=== PATIENT | male | born 1955 | race Caucasian/White ===

== ENCOUNTER 2016-10-06 10:14 | Emergency (ER) | payer BC ==
[2016-10-06 10:26] VITALS: BP 149/90
--- NOTE | 2016-10-06 11:28 | UC ---
Neck Pain HPI - HPI Summary HPI Summary: This is a 61 yo gentleman with HTN, DM and HLD who presents with c/o neck and shoulder pain for ~5d. He denies trauma. He was working in his garden the day prior to symptoms starting. He awoke with symptoms that have become progressively worse. He went on a car trip the day symptoms started. He denies associated weakness, numbness. Pain radiates across his upper back/ shoulders. He used one dose of ibuprofen and regular hot/cold packs. No assoc MITCHELL or vision changes. - History of Current Complaint Chief Complaint: UCBackPain Stated Complaint: NECK/BILATERAL SHOULDER PAIN - Allergies/Home Medications Allergies/Adverse Reactions: Allergies Allergy/AdvReac Type Severity Reaction Status Date / Time Lisinopril Allergy See Comment Verified 10/06/16 10:26 Home Medications: Home Medications Cholecalciferol TAB* [Vitamin D TAB*] 1,000 unit PO DAILY 10/06/16 [History Confirmed 10/06/16] Cyanocobalamin TAB* [Vitamin B12 TAB*] 1,000 mcg PO DAILY 10/06/16 [History Confirmed 10/06/16] Glimepiride [Amaryl] 4 mg PO DAILY 10/06/16 [History Confirmed 10/06/16] PMH/Surg Hx/FS Hx/Imm Hx Endocrine History: Diabetes, Dyslipidemia Cardiovascular History: Hypertension - Surgical History Surgical History: Yes Surgery Procedure, Year, and Place: hyernia repair - Family History Known Family History: Positive: Diabetes - Social History Alcohol Use: Weekly Substance Use Type: Marijuana Smoking Status (MU): Former Smoker Review Of Systems Constitutional: Positive: Negative Skin: Positive: Negative Eyes: Positive: Negative ENT: Positive: Negative Respiratory: Positive: Negative Cardiovascular: Positive: Negative Gastrointestinal: Positive: Negative Genitourinary: Positive: Negative Musculoskeletal: Positive: Arthralgia Neurological: Positive: Negative Psychological: Positive: Negative All Other Systems Reviewed And Are Negative: Yes Physical Exam Triage Information Reviewed: Yes Appearance: Pain Distress Vital Signs: Initial Vital Signs Temp 98.2 F 10/06/16 10:22 Pulse 63 10/06/16 10:22 Resp 16 10/06/16 10:22 BP 149/90 10/06/16 10:22 Pulse Ox 99 10/06/16 10:22 Vital Signs Reviewed: Yes Neck: Positive: Supple, Other: - TTP over R lateral cervical paraspinal muscles/ trapezium Respiratory: Positive: Lungs clear, Normal breath sounds Cardiovascular: Positive: RRR, No Murmur Musculoskeletal: Positive: ROM Limited @ - cervical spine, Other: - full ROM at the shoulders and full strength Neck Pain Course/Dx - Course Course Of Treatment: This is a 61 yo gentleman with DM, HTN and HLD who presented with c/o neck pain/stiffness without associated trauma. Exam appears to be c/w cervical strain/spasm - Differential Dx/Diagnosis Differential Dx/HQI/PQRI: Cervical Fracture, Sprain, Strain Provider Diagnoses: 1. Cervical strain Discharge - Discharge Plan Condition: Stable Disposition: HOME Prescriptions: Cyclobenzaprine TAB* [Flexeril 10 MG TAB*] 10 mg PO TID PRN #30 tab PRN Reason: pain/spasm Hydrocodone-Acetaminophen [Hydrocodone/Acetaminophen 5-325 mg] 1 tab PO Q6H PRN #20 tab MDD 4 tabs PRN Reason: Pain Patient Education Materials: Cervical Strain (ED) Referrals: Rod Zaldivar MD [Primary Care Provider] - If Needed Additional Instructions: Activity: As tolerated, no drive when taking pain medication Instructions: 1. Take medications as directed 2. Cont using warm packs, try to start gentle stretching 3. Consider massage or career resource technician
== END 2016-10-06 11:28 | disposition home or self-care (01) ==
LOC: UCCORT 10:14
DX: S13.9XXA Sprain of joints and ligaments of unspecified parts of neck, initial encounter (principal); I10 Essential (primary) hypertension; E11.9 Type 2 diabetes mellitus without complications; E78.5 Hyperlipidemia, unspecified; X58.XXXA Exposure to other specified factors, initial encounter; Z87.891 Personal history of nicotine dependence; Y92.9 Unspecified place or not applicable
CPT/HCPCS: 99212; G0463

== ENCOUNTER 2016-10-21 13:05 | Emergency (ER) | payer BC ==
[2016-10-21] MEDS ORDERED: Heparin VIAL(*) 5000 UNITS/ML VIAL (FIVE THOUSAND) ONE (13:15)
[2016-10-21] MEDS ORDERED: Ticagrelor* 90 MG TAB PO ONE (13:15)
[2016-10-21 13:16] VITALS: BP 183/104
[2016-10-21 13:25] LABS: Hematocrit 42 % (42-52); Hemoglobin 14.5 g/dl (14.0-18.0); Mean Corpuscular HGB Conc 35 g/dl (31-36); Mean Corpuscular Hemoglobin 35 pg (27-31); Mean Corpuscular Volume 100 fL (80-94); Mean Platelet Volume 10 um3 (7.4-10.4); Red Blood Count 4.21 10^6/ul (4.0-5.4); Red Cell Distribution Width 14 % (10.5-15)
[2016-10-21 13:42] LABS: Troponin I 0.89 ng/mL (<0.04)
[2016-10-21 13:49] LABS: Albumin 3.9 g/dL (3.2-5.2); EGFR Non-African American 85.5 (>60); Globulin 2.8 g/dL (2-4); Potassium 4.2 mmol/L (3.5-5.0); Total Bilirubin 0.4 mg/dL (0.2-1.0); Total Protein 6.7 g/dL (6.4-8.9)
[2016-10-21] MEDS ORDERED: Iohexol 350 (CONTRAST) 200 ML MDV IV ONE ×2 (13:54→15:10)
[2016-10-21] MEDS ORDERED: Heparin 2 UNITS/ML IVPREMIX* 1,000 ML IV ONE (14:01)
[2016-10-21] MEDS ORDERED: Bivalirudin(*) 250 MG VIAL ONE ×2 (14:35→15:10)
[2016-10-21] MEDS ORDERED: Heparin 2 UNITS/ML IVPREMIX* 2,000 ML IV ONE ×2 (14:39→15:10)
[2016-10-21] MEDS ORDERED: nitroGLYCERIN DRIP* 500 ML ONE (15:09)
[2016-10-21] MEDS ORDERED: Lidocaine 1% INJ* 10 MG/ML 30 ML SDV ONE (15:10)
[2016-10-21] MEDS ORDERED: nitroGLYCERIN DRIP* 250 ML ONE (15:13)
[2016-10-21] MEDS ORDERED: Midazolam* 1 MG/ML 5 ML VIAL (5 MG) ONE (15:33)
--- NOTE | 2016-10-21 15:36 | ED ---
I, Oh,Soohychristy, scribed for Kris Osorio MD on 10/21/16 at 1314 . HPI Chest Pain - HPI Summary HPI Summary: STEMI called while pt en route at 1259 PM based on EKG. Time of arrival at 1308 PM This 61 y/o male presents to ED via ambulance for intermittent CP since 4 days ago. Pt states that CP was worse 3 days ago, and pt had mild episode today at 0900 AM that lasted about 10-15 minutes. Pain is currently resolved. Positive retrosternal pressure. Negative SOB. PMHx includes 2x VA and DM type II. Dr. Silvestre was paged while pt is en route and is present upon pt's arrival to ED. - History of Current Complaint Hx Obtained From: Patient, Medical Records Onset/Duration: Started Hours Ago, Atraumatic, Resolved Timing: Intermittent, Lasting Minutes - 10-15 minutes Chest Pain Location: Diffuse Chest Pain Radiates: No Character: Pressure/Squeezing Aggravating Factor(s): Nothing Alleviating Factor(s): Spontaneous Resolution Associated Signs and Symptoms: Positive: Chest Pain. Negative: Shortness of Breath - Allergy/Home Medications Allergies/Adverse Reactions: Allergies Allergy/AdvReac Type Severity Reaction Status Date / Time Lisinopril Allergy See Comment Verified 10/06/16 10:26 PMH/Surg Hx/FS Hx/Imm Hx Endocrine/Hematology History: Reports: Hx Diabetes - TYPE 2 Denies: Hx Thyroid Disease Cardiovascular History: Reports: Hx Hypertension, Hx Myocardial Infarction - x2 Respiratory History: Reports: Hx Chronic Obstructive Pulmonary Disease (COPD) Denies: Hx Asthma GI History: Denies: Hx Ulcer - Surgical History Surgery Procedure, Year, and Place: hyernia repair Infectious Disease History: Denies: Hx Hepatitis, Hx Human Immunodeficiency Virus (HIV) - Family History Known Family History: Positive: Diabetes - Social History Alcohol Use: Weekly Substance Use Type: Reports: Marijuana Smoking Status (MU): Former Smoker Review of Systems Negative: Fever Positive: Chest Pain Negative: Shortness Of Breath All Other Systems Reviewed And Are Negative: Yes Physical Exam - Summary Physical Exam Summary: Well-appearing, no pain distress, Well nourished Warm, dry, color reflects adequate perfusion Nml head/face Nml eyes Nml ENT Supple, non-tender CTA, breath sound present RRR. Reports resprosternal CP Nml musculoskeletal Nml neuro Nml psychiatric, affect/mood appropriate Triage Information Reviewed: Yes Vital Signs On Initial Exam: Initial Vitals Temp Pulse Resp BP Pulse Ox 97.7 F 75 16 183/104 100 10/21/16 13:14 10/21/16 13:14 10/21/16 13:14 10/21/16 13:14 10/21/16 13:14 Vital Signs Reviewed: Yes Diagnostics - Vital Signs Vital Signs Temp Pulse Resp BP Pulse Ox 10/21/16 13:14 97.7 F 75 16 183/104 100 - Laboratory Lab Results: Lab Results 10/21/16 10/21/16 10/21/16 Range/Units 13:10 13:10 13:10 WBC 8.0 (3.5-10.8) 10^3/ul RBC 4.21 (4.0-5.4) 10^6/ul Hgb 14.5 (14.0-18.0) g/dl Hct 42 (42-52) % MCV 100 H (80-94) fL MCH 35 H (27-31) pg MCHC 35 (31-36) g/dl RDW 14 (10.5-15) % Plt Count 181 (150-450) 10^3/ul MPV 10 (7.4-10.4) um3 Neut % (Auto) 47.8 (38-83) % Lymph % (Auto) 39.4 (25-47) % [place] % (Auto) 10.7 H (1-9) % Eos % (Auto) 1.9 (0-6) % Baso % (Auto) 0.2 (0-2) % Absolute Neuts (auto) 3.8 (1.5-7.7) 10^3/ul Absolute Lymphs (auto) 3.2 (1.0-4.8) 10^3/ul Absolute Monos (auto) 0.9 H (0-0.8) 10^3/ul Absolute Eos (auto) 0.2 (0-0.6) 10^3/ul Absolute Basos (auto) 0 (0-0.2) 10^3/ul Absolute Nucleated RBC 0.01 10^3/ul Nucleated RBC % 0.1 INR (Anticoag Therapy) 0.87 L (0.89-1.11) APTT 27.0 (26.0-36.3) seconds Sodium 132 L (133-145) mmol/L Potassium 4.2 (3.5-5.0) mmol/L Chloride 98 L (101-111) mmol/L Carbon Dioxide 28 (22-32) mmol/L Anion Gap 6 (2-11) mmol/L BUN 18 (6-24) mg/dL Creatinine 0.90 (0.67-1.17) mg/dL Est GFR ( Amer) 110.0 (>60) Est GFR (Non-Af Amer) 85.5 (>60) BUN/Creatinine Ratio 20.0 (8-20) Glucose 279 H (70-100) mg/dL Lactic Acid (0.5-2.0) mmol/L Calcium 9.0 (8.6-10.3) mg/dL Total Bilirubin 0.40 (0.2-1.0) mg/dL AST 20 (13-39) U/L ALT 25 (7-52) U/L Alkaline Phosphatase 95 (34-104) U/L Total Creatine Kinase 229 H (10-223) U/L CK-MB (CK-2) 11.3 H (0.6-6.3) ng/mL Troponin I 0.89 H* (<0.04) ng/mL B-Natriuretic Peptide ( - 100) pg/mL Total Protein 6.7 (6.4-8.9) g/dL Albumin 3.9 (3.2-5.2) g/dL Globulin 2.8 (2-4) g/dL Albumin/Globulin Ratio 1.4 (1-3) LDL Cholesterol Direct 81 mg/dL 10/21/16 10/21/16 Range/Units 13:10 13:10 WBC (3.5-10.8) 10^3/ul RBC (4.0-5.4) 10^6/ul Hgb (14.0-18.0) g/dl Hct (42-52) % MCV (80-94) fL MCH (27-31) pg MCHC (31-36) g/dl RDW (10.5-15) % Plt Count (150-450) 10^3/ul MPV (7.4-10.4) um3 Neut % (Auto) (38-83) % Lymph % (Auto) (25-47) % [place] % (Auto) (1-9) % Eos % (Auto) (0-6) % Baso % (Auto) (0-2) % Absolute Neuts (auto) (1.5-7.7) 10^3/ul Absolute Lymphs (auto) (1.0-4.8) 10^3/ul Absolute Monos (auto) (0-0.8) 10^3/ul Absolute Eos (auto) (0-0.6) 10^3/ul Absolute Basos (auto) (0-0.2) 10^3/ul Absolute Nucleated RBC 10^3/ul Nucleated RBC % INR (Anticoag Therapy) (0.89-1.11) APTT (26.0-36.3) seconds Sodium (133-145) mmol/L Potassium (3.5-5.0) mmol/L Chloride (101-111) mmol/L Carbon Dioxide (22-32) mmol/L Anion Gap (2-11) mmol/L BUN (6-24) mg/dL Creatinine (0.67-1.17) mg/dL Est GFR ( Amer) (>60) Est GFR (Non-Af Amer) (>60) BUN/Creatinine Ratio (8-20) Glucose (70-100) mg/dL Lactic Acid 1.3 (0.5-2.0) mmol/L Calcium (8.6-10.3) mg/dL Total Bilirubin (0.2-1.0) mg/dL AST (13-39) U/L ALT (7-52) U/L Alkaline Phosphatase (34-104) U/L Total Creatine Kinase (10-223) U/L CK-MB (CK-2) (0.6-6.3) ng/mL Troponin I (<0.04) ng/mL B-Natriuretic Peptide 73 ( - 100) pg/mL Total Protein (6.4-8.9) g/dL Albumin (3.2-5.2) g/dL Globulin (2-4) g/dL Albumin/Globulin Ratio (1-3) LDL Cholesterol Direct mg/dL Result Diagrams: 10/21/16 13:10 10/21/16 13:10 Lab Statement: Any lab studies that have been ordered have been reviewed, and results considered in the medical decision making process. Chest Pain Course/Dx - Course Course Of Treatment: Mr. Mcneill [place] [facility] [place] a direct admit to the ICU because of CP. An ecg was faxed in and noted to represent an acute STEMI and the patient was held up in the ED and a STEMI alert called. He was taken to the cath unit almost immediately. - Diagnoses Provider Diagnoses: STEMI (ST elevation myocardial infarction) During the Visit The Following Alert/Code Occurred: STEMI - Called while pt en route at 1259 PM. - Provider Notifications Discussed Care Of Patient With: Florin Silvestre Time Discussed With Above Provider: 12:56 Discharge - Discharge Plan Condition: Critical Disposition: ADMITTED TO [facility] The documentation as recorded by the Axel price Soohyun accurately reflects the service I personally performed and the decisions made by Devon fernando Richard L, MD.
--- NOTE | 2016-10-22 00:03 | CONS ---
CC: Dr. Rod Zaldivar; Dr. Danial Foy * CARDIOLOGY CONSULT AND TRANSFER NOTE: DATE OF CONSULT: 10/21/[address] Rod Zaldivar to see the patient in consultation having been sent directly from his office with EKG changes suggesting acute coronary syndrome, possibly evolving anterior wall myocardial infarction. HISTORY OF PRESENT ILLNESS: The patient is a pleasant 61-year-old gentleman, who reports back in the 80s, he underwent emergent cardiac catheterization for question of a heart attack. It is unclear exactly what happened at that time, but he was transferred from [facility] to the [facility] and underwent a cardiac catheterization. He does not remember any balloon angioplasty being done at that time, although would have been in his infancy at that time. Since then to now, he has had no specific symptoms. He is followed by Dr. Rod Zaldivar for hypertension, hyperlipidemia and [id number] diabetes mellitus. He has seen Dr. Danial Foy (I learnt this after the cardiac catheterization) for his cardiac problems. The patient states he was in usual state of health until a couple of days prior to admission. He started noticing with any type of exertion, he would develop significant chest tightness sensation. There was some mild radiation up into the throat area, but not well into the jaw. He had some numbness in the arms as well. He will get some shortness of breath and sweatiness with this. These symptoms occurred on and off throughout the past 2 days, initially being mild in nature, but clearly getting more significant. This morning, he had a bad spell and sought medical attention by going through his family doctor, Dr. Rod Zaldivar. Dr. Zaldivar performed an EKG in the office, which revealed abnormal anterior wall ST segment changes with biphasic T-waves and a question of Q-waves in V1 and V2 with small R in V3, T-wave inversions seen as well in V4 and V5, subtly in aVL. Dr. Zaldivar called for an ambulance to bring him to the hospital and was going to direct admit him to the telemetry unit. EKG was repeated in the ambulance and they were quite concerned that it was consistent with an evolving anterior wall myocardial infarction, the time of which is uncertain and as such , the patient was brought directly to the emergency room. In the emergency room , the patient was doing well. He, at the moment when I saw him, denied any significant symptoms, but the paramedics had said there was question of mild discomfort on the way over. Prior to that, his earlier discomfort had been a couple of hours ago. He was not having any nausea, vomiting, or diaphoresis when I saw him. He had gotten a full dose aspirin and was given intravenous heparin 4000 units. I discussed with him at length the concept of the ongoing symptomatology stuttering in nature, my concern over there being significant blockages in his coronary arteries, particularly the left anterior descending artery to the front area of the heart. I explained that I thought cardiac catheterization should be performed in order to look for the presence of critical disease that would need acute intervention. The risks and benefits were explained, he understood them and wished to proceed. Cardiac risk factors included diabetes, hyperlipidemia, hypertension. He had a remote smoking history of 4 packs per day, but has not smoked for some 20 years. He has family history of father with coronary artery disease and diabetes present within the family. 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 CURRENT MEDICATIONS: At home included: 1. Aspirin 325 a day. 2. Atorvastatin 40 mg a day. 3. Cholecalciferol 1000 units daily. 4. Vitamin B12 1000 mcg daily. 5. Glimepiride 4 mg daily. 6. Irbesartan 150 mg once a day. 7. Metformin 1000 mg twice a day. 8. Metoprolol succinate 50 mg daily. REVIEW OF SYSTEMS: Pertinent to proceeding to the cardiovascular laborer included no prior history of stroke, no history of TIA. He denies any history of hematochezia, hematemesis, or hematuria. He denies any history of significant renal insufficiency. He has no allergy to contrast dye that he is aware of. PHYSICAL EXAMINATION: When I saw him in the emergency room revealed vital signs : Blood pressure 165/85, pulse was regular at 75, O2 saturation 100% on room air. Afebrile. Neck: Supple. No increased JVP. Carotid with good upstroke and volume without bruits. Conjunctivae pink. Sclerae clear. Mouth revealed moist mucosa. Lungs: Revealed no accessory muscle usage. There was good excursion. There were no active rales, rhonchi, or wheezes present. Heart: Revealed no visible heaves, no palpable heaves or thrills. Normal S1, S2. No significant S3, S4 gallop. No significant systolic or diastolic murmur appreciated. Abdomen: Soft, nontender without organomegaly. Extremities: Without clubbing, cyanosis, or mercedez pitting edema. The peripheral pulses were intact. The femoral pulse was somewhat deep in nature, but present bilaterally. I did not appreciate significant bruits. Neuro: The patient is alert and oriented with normal mentation. Musculoskeletal: The patient moves all extremities appropriately. Psychological: The patient with normal affect. DIAGNOSTIC STUDIES/LAB DATA: Electrocardiogram was reviewed and showed mild J- point elevation in V1 and V2 with biphasic T-waves in the precordial leads extending out to V4 with T-wave inversion in V5 and aVL with poor R-wave progression, all suggestive of acute ischemia/possible injury to the anterior wall. OVERALL ASSESSMENT: The patient presents now with findings consistent with acute coronary syndrome with an EKG suggesting potentially evolving anterior wall ischemia/injury. The risks and benefits were explained and he agrees to proceed to the laborer. Medications have been appropriately administered. He will receive 180 mg of Brilinta immediately on arrival to the laborer. Further management will be made pending results of the cardiac catheterization. Postprocedure: Cardiac catheterization revealed the presence of a totally occluded mid LAD with poor collaterals from the right coronary artery with the circumflex obtuse marginal branch to a diagonal branch. The right coronary artery itself after reviewing the films postprocedure had a diffusely diseased moderate area within the mid portion; however, there was an ulcerated area right prior to turning onto the inferior surface of the heart that may have been more significant as much as perhaps 75%. Attempts were made to cross the totally occluded mid LAD believing that this was a recent event and although a wire could go across it and a small- sized balloon was expanded, it could not expand the artery well enough to at least let further balloon catheters be attempted despite multiple wire usage and different balloons. Given this problem with JACQUIE-3 flow now seen down the LAD, but a significant residual lesion throughout the segment that was totally occluded, the decision was made to transfer the patient to the [facility] for more intensive attempts percutaneously with perhaps a rotational atherectomy deemed appropriate by the interventionalist there as well as possibly intervening into the right coronary artery if the LAD is successful. The alternative would be bypass surgery, which unfortunately will have to wait for probably 48 hours given the fact that Brilinta was given. Laboratory results that came back while the cath was being performed showed a hemoglobin and hematocrit of 14.5 and 42, a platelet count of 181,000, white count was 8000. Sodium 132, potassium 4.2, chloride 98, bicarb 28, BUN and creatinine 18 and 0.9, glucose was 279. Total CPK was 229 with an MB of 11.3 and a troponin of 0.89. The B-natriuretic peptide was 73. SGOT was 20, SGPT was 25. The patient was stable postprocedure. He had no further chest discomfort on IV nitro and on Angiomax intravenously, both were kept running with the sheath and the left groin area sutured in place as the patient was being transported by ambulance to the [facility]. At the time he left [facility], he was in no discomfort and hemodynamically stable. [id number] #: [id number] MTDD
--- NOTE | 2016-10-22 10:22 | CATH ---
CC: Dr. Rod Zaldivar; Dr. Danial Foy CARDIAC CATHETERIZATION AND ATTEMPTED INTERVENTIONAL REPORT: DATE OF PROCEDURE: 10/21/16 INDICATION FOR PROCEDURE: The patient with stuttering anterior wall myocardial infarction with acute coronary syndrome. The procedure was coronary arteriography, balloon angioplasty of mid LAD with small-caliber balloon unable to deliver larger balloons or stents, left ventriculography, left heart catheterization. DESCRIPTION OF PROCEDURE: The patient was interviewed and examined in the emergency room where the risks and benefits of cardiac catheterization were explained. He understood them and wished to proceed. The patient had received full dose aspirin therapy and got 4000 units of heparin, 180 mg of Brilinta was administered in the cardiovascular laboratory. The patient was prepped and draped in sterile fashion. The left groin area was anesthetized with 1% lidocaine, left femoral artery was cannulated, and a 6-Qatari introducer was placed. Coronary arteriography was performed using a 5-Qatari 4 Delia right coronary catheter. A 6-Qatari VL3.5 curve left coronary guide catheter was utilized to cannulate the left coronary artery. Following this, the decision was made to attempt intervention in the short segment of totally occluded mid LAD. The ACT was checked and found to be subtherapeutic, and as such Angiomax bolus and Angiomax drip was started. An 0.014 All Star exchange length wire was advanced down the left anterior descending artery with mild difficulty across the total occluded area, and appeared to show free movement of the wire tip in the distal vessel. Attempts were made to deliver an eqcf-iej-kgno balloon in order to try to place distally and prove this. It was unsuccessful in doing this. Attempts were then made to utilize the smaller-size balloon, which was able to be placed within what appeared to be the totally occluded artery with balloon inflation utilizing a 1.5 x 12 mm long Emerge [id number]-[id number] balloon. After inflation of this, there appeared to be some improvement of flow in the left anterior descending artery but still a critical stenosis was noted. Despite multiple attempts with different balloons extremely low profile , including a 1.2 x 8 mm long balloon, these were unable to cross. Attempts with different wires including a run-through as well as a wiggle wire were also attempted to try to obtain a different path through the originally totally occluded area in case of dissection with subintimal tracking for a short period was the problem. This was unsuccessful as well. With JACQUIE-3 flow present, and the patient not having discomfort, the decision was made to abort further attempts at intervention in preference to transfer to a center that has further capability including potentially rotablator therapy for a refractory lesion. Following this, left heart catheterization was performed using a 5-Qatari pigtail catheter advanced to the ascending aorta where central aortic pressure was recorded. The catheter was then passed across the aortic valve into the left ventricle where left ventricular pressure was recorded. Left ventriculography was performed utilizing a power injection for a total of 24 cc of Omnipaque dye at a rate of 12 cc/sec was utilized. The catheter was then pulled across the aortic valve to recheck gradient. Following this, the sheath was sutured in place and a phone call was made to Dr. Leggett, a animal breeder at [facility] in [place], [place], who graciously accepted Mr. Mcneill in transfer. The patient was stable, and medications that were present at the end of the case included the continuing Angiomax drip which was kept going in addition to IV nitroglycerin drip at 7.5 mcg/minute. The total contrast used was 200 cc of Omnipaque dye. The radiation exposure included 31.4 minutes of fluoro time, the air kerma radiation was 3026. The DAP radiation was 15,741 microgray/m2. RESULTS: HEMODYNAMIC DATA: Left heart catheterization - central aortic pressure was recorded at 160/85 with a mean of 119, left ventricular pressure recorded at 164 over the left ventricular end-diastolic pressure of 14. LEFT VENTRICULOGRAPHY: Performed in the FLETCHER projection revealed virtual akinesis of the apical region with preservation of the proximal mid and mid to distal inferior wall with mild hypokinesis of the distal anterior wall with preservation of the more proximal area. Of note, it was a suboptimal injection due to ventricular arrhythmia noted. CORONARY ARTERIOGRAPHY: A. Right coronary artery: 1. A dominant vessel supplying the PDA and multiple posterior left ventricular branches. There was a mild 25 to 30% proximal narrowing seen. The mid segment had diffuse disease for a long segment with areas of stenosis as much as 65 to 70%. Of note, in the mid segment of this area there appeared to be an ulcerated lesion, which appeared to be narrowed as much as 70 to 75% in its worst angle, the JUANA projection. Of note, calcium around this area was seen as well, as well as calcium in the distal right coronary artery before the PDA, but no significant stenosis was seen. 2. There was collateral seen from the right coronary artery to the distal LAD faintly filling it. B. Left coronary artery: 1. Left main - short nature with no significant disease. 2. Left anterior descending artery - the left anterior descending artery traversed to the mid segment where, just after a small diagonal branch, there appeared to be a total occlusion with retrograde filling noted via ocpn-jg-gmrk collaterals from an obtuse marginal branch to a diagonal branch. Proximal to this area in the left anterior descending artery, just at the takeoff of the first septal multimedia services manager, there was an area of 40 to 45% stenosis seen. A high thin first diagonal branch was noted followed by a mid posteriorly directed diagonal branch. Both of these vessels appeared to be thin in nature. 3. Circumflex artery - a nondominant vessel supplying a moderate size mid obtuse marginal branch which traversed to the low posterior lateral apical region. There was a mid narrowing of approximately 45 to 50% seen in this artery. The continuation of circumflex supplied a trivial small obtuse marginal branch. INTERVENTION INTO MID LAD: Attempted intervention into mid totally occluded LAD - successful wiring across the left anterior descending artery with a balloon angioplasty to the area with a small diameter balloon unable to get any further dilatation to the area because of either a undilatable lesion or a small area of subintimal tracking.JACQUIE III flow at end of case but high grade 85-90% stenosis still present. OVERALL ASSESSMENT: Significant disease with totally occluded mid LAD with mosque of JACQUIE III flow but unable to dilate, leaving a significant stenosis, stenosis also involving the mid right coronary artery just prior to turning on to the inferior surface of the heart. At this point in time, a discussion was made with [facility] in an attempt to evaluate whether or not repeated attempts at percutaneous intervention can be made versus bypass surgery to the LAD and possibly right coronary artery. For now, the patient will be maintained for transport on IV Angiomax, which most likely will be switched over to heparin if the patient is not going to the industrial laborer tonight by the [facility] doctors. Patient is also on IV nitroglycerin. Further medical management including beta lorie and high-dose statin therapy will be under the guidance of [facility], who graciously accepted the patient for transfer. [id number]/[facility] #: [id number] [facility]ITALJovanni
== END 2016-10-21 18:16 | disposition short-term general hospital (02) ==
LOC: ED 13:05 → CHICATH 13:12 → ED 18:16
DX: I21.3 ST elevation (STEMI) myocardial infarction of unspecified site (principal); Z87.891 Personal history of nicotine dependence; I25.2 Old myocardial infarction; E11.8 Type 2 diabetes mellitus with unspecified complications; I10 Essential (primary) hypertension; J44.9 Chronic obstructive pulmonary disease, unspecified; E78.5 Hyperlipidemia, unspecified; E11.49 Type 2 diabetes mellitus with other diabetic neurological complication; Z79.82 Long term (current) use of aspirin; Z79.84 Long term (current) use of oral hypoglycemic drugs
CPT/HCPCS: 36415; 80053; 82550; 82553; 83605; 83721; 83880; 84484; 85025; 85610; 85730; 93005; 99285; A9270-GY; C1725; C1757; C1769; C1887; J1644; J2001; J2250

== ENCOUNTER → 2018-11-24 08:31 | Day surgery (SDC) | payer BC ==
--- NOTE | 2018-11-22 16:02 | HP ---
AMENDED REPORT NOW INCLUDES DESIGNATED COSIGNER * ESIGNED BEFORE ADJUSTMENTS CC: Dr. Rod Zaldivar; Dr. Danial Foy * ADMISSION HISTORY AND PHYSICAL: DATE OF ADMISSION: 11/24/18 ATTENDING SURGEON: Dr. Efrain Beckwith.* (DICTATED BY ALEN VALDIVIA) CHIEF COMPLAINT: Left inguinal hernia. HISTORY OF PRESENT ILLNESS: This is a 63-year-old male, who for at least the past 5 and possibly 10 years has noted the presence of a left groin bulge. It was asymptomatic until the past couple of months when he started a new job, which required more physical activity. During that time, he has noted increased discomfort in the left groin occasionally requiring manual reduction for relief. He has not had any change in GI or function and he has not had anything to suggest incarceration or strangulation. He did undergo open repair of right inguinal hernia over 20 years ago. He was seen in the office by Dr. Beckwith on 09/16/18, at which time exam confirmed the presence of a reducible left groin bulge. There was no evidence of recurrence on the right. Dr. Beckwith has discussed with him the indications for repair, the risks, benefits, and alternatives as well as the approaches for repair. The patient would like to proceed as scheduled with laparoscopic repair of left inguinal hernia with mesh. PAST MEDICAL HISTORY: Type 2 diabetes, coronary artery disease (status post IA x3, beginning at age 37, with drug-eluting stent placement in 2017. He is followed by Dr. Foy, see separate preoperative evaluation; Brilinta was stopped as of that visit). The patient is also diagnosed with COPD, though not requiring any active treatment. He is treated for hyperlipidemia and has undergone bilateral eye injections for retinal disease of both eyes. PAST SURGICAL HISTORY: Surgeries include the right inguinal herniorrhaphy as noted above, bilateral cataract surgery with lens implants, and injections for retinal disease bilaterally approximately every 3 months. 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 No surgical or anesthesia complications noted. CURRENT MEDICATIONS: 1. Jardiance 25 mg once daily in the morning. 2. Atorvastatin 80 mg once daily in the evening. 3. Metformin 1000 mg b.i.d. 4. Aspirin 325 mg one-half tablet once daily, which he will continue perioperatively. 5. Glimepiride 4 mg once daily in the morning. 6. Metoprolol extended release 100 mg once daily. 7. Irbesartan 150 mg once daily. 8. Amlodipine 5 mg once daily. 9. He also takes the following supplements: Vitamin C, vitamin D, and B12 daily. DRUG ALLERGIES: LISINOPRIL (chest tightness). FAMILY HISTORY: Negative for anesthesia problems, bleeding or clotting disorders. SOCIAL HISTORY: The patient is . He currently works doing cleaning in one of the schools. He is a former smoker, who quit 10 years ago. He drinks 6 to 8 beers he states on Saturdays only. He denies use of other recreational drugs. REVIEW OF SYSTEMS: General: No recent constitutional symptoms or acute illnesses. HEENT: No problems reported. Cardiovascular: See attached from Dr. Foy. No recent chest pain or palpitations. Respiratory: Smoking history as noted. No recent exacerbations of COPD. He does not use any bronchodilator therapy. GI: No problems reported. He does undergo annual stool guaiac testing, which he states has been negative. : No problems reported. Endocrine: Type 2 diabetes as noted above. No thyroid dysfunction. PHYSICAL EXAMINATION GENERAL: Well-nourished, well-developed male, in no acute distress. VITAL SIGNS: Height 71 inches, weight 189 pounds. Blood pressure 120/80, pulse 66, respirations 16. HEENT: Pupils are equal, round, and reactive. EOMs intact. No conjunctival pallor. Oropharynx: Teeth in good repair. No intraoral lesions. NECK: No lymphadenopathy, thyromegaly, or masses. LUNGS: Clear to auscultation. No rales or wheezes. HEART: Regular rate and rhythm. No murmur noted. ABDOMEN: Soft, nontender to palpation. No palpable masses or organomegaly other than the aforementioned left groin bulge, which is prominent, but easily reducible in the standing position and without significant tenderness. GENITALIA: Otherwise not examined. No palpable hernia on the right per Dr. Beckwith's exam. RECTAL: Not done. BACK: No spinous process or CVA tenderness. EXTREMITIES: No edema. NEUROLOGICAL: Grossly intact. SKIN: Warm and dry. No suspicious rashes or lesions noted. IMPRESSION: Left inguinal hernia. PLAN: Laparoscopic repair of left inguinal hernia with mesh. ALEN VALDIVIA [id number]/[facility] #: [id number] [facility]
[~2018-11-24 08:31] MED LIST: Buffered Lidocaine 1% SYRIN* 1 ML/SYRINGE INTRADERM ONE; Dexamethasone IV* 4 MG/ML 1 ML (4 MG) IV SLOW PU ONE; Dexamethasone IV* 4 MG/ML 1 ML (4 MG) ONE; DiMENhydriNATE IV* 50 MG/ML VIAL IV PUSH PRN; EPHEDrine (Pressors)* 50 MG/ML VIAL ONE; Famotidine IV* 10 MG/ML 2 ML (20 mg) IV ONE; Famotidine IV* 10 MG/ML 2 ML (20 mg) ONE; Glycopyrrolate IV* 0.2 MG/ML 1 ML VIAL ONE; HYDROmorphone INJ1* 1 MG/ML SYRINGE IV PRN; Ketorolac INJ* 30 MG/ML 1 ML VIAL ONE; Lactated Ringers 1000 ML Bag* 1,000 ML IV SCH; Levalbuterol 0.63MG/3ML NEB* UNIT OF USE INH ONE; Metoprolol Succinate XL TAB* 100 MG PO ONE; Midazolam* 1 MG/ML 5 ML VIAL (5 MG) ONE; Naloxone* 0.4 MG/ML 1 ML VIAL IV PRN; Ondansetron INJ* 2 MG/ML VIAL IV PRN; Ondansetron INJ* 2 MG/ML VIAL ONE; Propofol* 10 MG/ML 20 ML BTL ONE; Rocuronium* 10 MG/ML VIAL ONE; ceFAZolin 2 GM in NS PREMIX(*) 2 GM/100 ML BAG IVPB ONE; fentaNYL* 50 MCG/ML 2 ML VIAL (100 MCG VIAL) IV PRN; fentaNYL* 50 MCG/ML 5 ML VIAL (250 MCG VIAL) ONE; oxyCODONE/Acetamin 5/325 MG* TAB PO PRN
[2018-11-24 12:44] VITALS: BP 141/81
--- NOTE | 2018-11-24 14:52 | OP ---
CC: Dr. Rod Zaldivar; Dr. Danial Foy * DATE OF OPERATION: 11/24/18 - [facility] DATE OF : 53 PRIMARY CARE DOCTOR: Dr. Rod Zaldivar. SURGEON: Efrain Beckwith MD ELECTROTYPE FINISHER: Inez Etienne NP ANESTHESIOLOGIST: Dr. Maximus Saldivar. ANESTHESIA: General. PRE-OP DIAGNOSIS: Left inguinal hernia. POST-OP DIAGNOSIS: Left inguinal hernia. OPERATIVE PROCEDURE: Laparoscopic left inguinal hernia repair with mesh. ESTIMATED BLOOD LOSS: Minimal. FLUIDS: Minimal crystalloid fluid given. SPECIMENS: None. DESCRIPTION OF PROCEDURE: The patient was identified in the preoperative area, consent was signed. The patient was marked paying attention to the left groin and the hair was clipped, and the patient was taken to the operating room and placed on the operating room table in supine position. Preoperative antibiotics were given. Sequential devices were placed on bilateral lower extremities and general anesthesia was induced. The patient's abdomen was prepped and draped in the standard surgical fashion. Time-out was performed. An infraumbilical incision was made. This was deepened down to the anterior fascia on the right which was incised and the rectus pillar retracted laterally and entry into the preperitoneal plane was made and blunt finger dissection was carried out right down to the pubic symphysis. Next, a 12-mm blunt trocar was inserted and the preperitoneal plane was allowed to insufflate to a pressure of 12 mmHg. The patient tolerated the insufflation well. Camera dissection was then carried out freeing up the loose areolar tissue in this plane. Next, two 5-mm trocars were placed in the lower midline and attention was then turned towards the Bang's ligament on the right as well as on the left. We could not see Bang's ligament on the left due to a large hernia. We freed up the area of the pubic symphysis, and then with gentle traction, we were able to reduce peritoneal sac in a large direct hernia. Once it was down, we could appreciate the Bang's ligament on the left better, identified the large vessels which were protected and free of any peritoneal reflection. We then identified the epigastric vessels, these were maintained anteriorly and blunt dissection was carried out into Bogros' space laterally. Next, the spermatic structures were skeletonized. The peritoneum was retracted bluntly into the lateral site to be behind our mesh. Next, a large left-sided 3DMax mesh was then inserted into the preperitoneal plane. It was allowed to unfurl. It was tacked just above the pubic symphysis and 2 additional tacks along Bang's ligament. It was in the appropriate position, covering the full myopectineal orifice. We held traction laterally and then allowed the preperitoneal plane to collapse. The trocars were removed under direct vision, and we reapproximated the fascia at the umbilical site with interrupted 0 Vicryl suture, using three in all. The wound was irrigated and all three incisions were reapproximated with 4-0 Monocryl subcuticular sutures followed by Steri-Strips and sterile dressing. The patient tolerated the procedure well, was woken up in the OR, and transferred to PACU in stable condition. [id number]/[facility] #: [id number] MTDD
== END | disposition home or self-care (01) ==
LOC: OR 08:31
PROVIDERS: ATTEND Surgery
DX: K40.90 Unilateral inguinal hernia, without obstruction or gangrene, not specified as recurrent (principal); E11.9 Type 2 diabetes mellitus without complications; Z79.84 Long term (current) use of oral hypoglycemic drugs; I25.10 Atherosclerotic heart disease of native coronary artery without angina pectoris; I25.2 Old myocardial infarction; J44.9 Chronic obstructive pulmonary disease, unspecified; Z87.891 Personal history of nicotine dependence; Z95.5 Presence of coronary angioplasty implant and graft; I10 Essential (primary) hypertension
CPT/HCPCS: A9270-GY; C1781; J0690; J1100; J1885; J2250; J2405; J2704; J3010

== ENCOUNTER 2019-11-03 09:30 | Inpatient (IN) ==
[2019-11-03] MEDS ORDERED: Dextrose 50% Syringe 50 ml 25 GM/50 ML SYRINGE IV PUSH PRN (13:04)
[2019-11-03 15:55] LABS: Urine Appearance Cloudy; Urine Bilirubin Negative (Negative); Urine Blood 1+ (Negative); Urine Color Amber; Urine Glucose Negative (Negative); Urine Ketones Negative (Negative); Urine Nitrite Negative (Negative); Urine Protein 2+(100 mg/dL) (Negative); Urine Specific Gravity 1.027 (1.010-1.030); Urine Urobilinogen Positive (Negative)
[2019-11-03 16:01] LABS: Urine Bacteria Absent (Absent); Urine Red Blood Cell 2+(6-10/hpf) (Absent); Urine White Blood Cell Trace(0-5/hpf) (Absent)
[2019-11-03] MEDS ORDERED: Amantadine LIQ 50 mg/5 ml UDC NG TUBE SCH (21:00)
[2019-11-04 05:23] LABS: ABS Basophils 0.1 10^3/ul (0-0.2); ABS Eosinophils 0.1 10^3/ul (0-0.6); ABS Lymphocytes 1.4 10^3/ul (1.0-4.8); ABS Neutrophils 5.4 10^3/ul (1.5-7.7); Hematocrit 35 % (42-52); Hemoglobin 11.7 g/dL (14.0-18.0); Lymphocyte % 17.7 %; Mean Corpuscular HGB Conc 34 g/dL (31-36); Mean Corpuscular Hemoglobin 34 pg (27-31); Mean Corpuscular Volume 101 fL (80-94); Mean Platelet Volume 10.3 fL (7.4-10.4); Platelet Count 205 10^3/uL (150-450); Red Blood Count 3.47 10^6 /uL (4.18-5.48); Red Cell Distribution Width 17 % (10-15); White Blood Count 7.9 10^3/uL (3.5-10.8)
[2019-11-04 05:33] LABS: Calcium 8.6 mg/dL (8.6-10.3); Potassium 3.6 mmol/L (3.5-5.0); Total Bilirubin 0.5 mg/dL (0.2-1.0)
[2019-11-04 05:39] LABS: Albumin/Globulin Ratio 0.9 (1-3); BUN/Creatinine Ratio 38.4 (8-20); EGFR African American 130.5 (>60); EGFR Non-African American 107.8 (>60); Globulin 3.3 g/dL (2-4); Total Protein 6.3 g/dL (6.4-8.9)
[2019-11-04] MEDS ORDERED: Insulin GLARGINE 100 un/ml 10 ml VIAL SUBCUT SCH (08:00)
[2019-11-04] MEDS: Amantadine SOLN ORALSYR 10 mg/ml NG TUBE SCH ×2 (08:58→21:22)
[2019-11-04] MEDS ORDERED: Enoxaparin 30 MG/0.3 ML SYR SUBCUT SCH (09:00)
[2019-11-05] MEDS: Insulin GLARGINE 100 un/ml 10 ml VIAL SUBCUT SCH (08:58)
[2019-11-05] MEDS: Amantadine SOLN ORALSYR 10 mg/ml NG TUBE SCH ×2 (09:00→21:25)
[2019-11-06] MEDS: Insulin GLARGINE 100 un/ml 10 ml VIAL SUBCUT SCH ×2 (10:17→15:26)
[2019-11-06] MEDS: Amantadine SOLN ORALSYR 10 mg/ml NG TUBE SCH ×2 (10:32→23:57)
[2019-11-06] MEDS ORDERED: Pancrelipase 5,000 units CAP ONE (23:00)
[2019-11-06] MEDS ORDERED: Sodium Bicarb 650 mg (ANTACID) TAB ONE (23:00)
[2019-11-06] MEDS ORDERED: D5NS 0.9% 1000 ml BAG 1,000 ML IV SCH (23:45)
[2019-11-07] MEDS ORDERED: D5NS 0.9% 1000 ml BAG 1,000 ML IV SCH (07:18)
[2019-11-07] MEDS: Amantadine SOLN ORALSYR 10 mg/ml NG TUBE SCH (08:24)
[2019-11-07] MEDS: Insulin GLARGINE 100 un/ml 10 ml VIAL SUBCUT SCH (09:51)
[2019-11-07 17:01] LABS: INR 1.18 (0.82-1.09)
[2019-11-08] MEDS ORDERED: Insulin GLARGINE 100 un/ml 10 ml VIAL SUBCUT ONE (09:00)
[2019-11-08] MEDS: Insulin GLARGINE 100 un/ml 10 ml VIAL SUBCUT SCH (09:39)
[2019-11-08] MEDS: Amantadine SOLN ORALSYR 10 mg/ml NG TUBE SCH ×2 (09:55→15:45)
[2019-11-09] MEDS: Amantadine SOLN ORALSYR 10 mg/ml NG TUBE SCH ×2 (09:45→16:20)
[2019-11-09] MEDS: Insulin GLARGINE 100 un/ml 10 ml VIAL SUBCUT SCH (10:20)
[2019-11-09] MEDS ORDERED: NS 0.9% 1000 ml BAG 1,000 ML IV SCH (20:45)
[2019-11-09] MEDS ORDERED: D5NS 0.9% 1000 ml BAG 1,000 ML IV SCH (23:00)
[2019-11-10] MEDS ORDERED: NS 0.9% 1000 ml BAG 1,000 ML IV SCH (08:45)
[2019-11-10] MEDS: Amantadine SOLN ORALSYR 10 mg/ml NG TUBE SCH ×2 (09:56→19:28)
[2019-11-10] MEDS ORDERED: ceFAZolin 1 GM* X ONE DOSE (AddVan) IVPB (15:30)
[2019-11-10] MEDS ORDERED: Midazolam 10 mg/10 ml VIAL 1 mg/ml 10 ml VIAL (10 mg) ONE (15:49)
[2019-11-10] MEDS ORDERED: fentaNYL 100 mcg/2 ml 50 MCG/ML VIAL ONE (15:49)
[2019-11-10] MEDS: NS 0.9% 1000 ml BAG 1,000 ML IV SCH (19:23)
[2019-11-11] MEDS: NS 0.9% 1000 ml BAG 1,000 ML IV SCH (01:56)
[2019-11-11 07:01] LABS: ABS Eosinophils 0.1 10^3/ul (0-0.6); ABS Lymphocytes 1.5 10^3/ul (1.0-4.8); ABS Monocytes 0.7 10^3/ul (0-0.8); ABS Neutrophils 2.3 10^3/ul (1.5-7.7); Eosinophil % 1.7 %; Hematocrit 36 % (42-52); Hemoglobin 12.3 g/dL (14.0-18.0); Lymphocyte % 32.2 %; Mean Corpuscular HGB Conc 35 g/dL (31-36); Mean Corpuscular Hemoglobin 34 pg (27-31); Mean Corpuscular Volume 100 fL (80-94); Nucleated Red Blood Cells % 0.1; Platelet Count 225 10^3/uL (150-450); Red Blood Count 3.59 10^6 /uL (4.18-5.48); Red Cell Distribution Width 17 % (10-15); White Blood Count 4.6 10^3/uL (3.5-10.8)
[2019-11-11 07:17] LABS: Albumin 3.1 g/dL (3.2-5.2); Albumin/Globulin Ratio 0.9 (1-3); BUN/Creatinine Ratio 15.7 (8-20); Calcium 8.8 mg/dL (8.6-10.3); EGFR African American 136.9 (>60); EGFR Non-African American 113.2 (>60); Globulin 3.6 g/dL (2-4); Potassium 3.6 mmol/L (3.5-5.0); Total Bilirubin 0.6 mg/dL (0.2-1.0); Total Protein 6.7 g/dL (6.4-8.9)
[2019-11-11] MEDS: Amantadine SOLN ORALSYR 10 mg/ml NG TUBE SCH (09:06)
[2019-11-11] MEDS: Amantadine SOLN ORALSYR 10 mg/ml PO SCH (17:18)
[2019-11-11] MEDS ORDERED: Insulin GLARGINE 100 un/ml 10 ml VIAL SUBCUT SCH ×2 (20:00)
[2019-11-12] MEDS: Amantadine SOLN ORALSYR 10 mg/ml G TUBE SCH (08:37)
[2019-11-12] MEDS: Amantadine SOLN ORALSYR 10 mg/ml PO SCH (15:41)
[2019-11-12] MEDS: Insulin GLARGINE 100 un/ml 10 ml VIAL SUBCUT SCH (21:36)
[2019-11-13] MEDS: Amantadine SOLN ORALSYR 10 mg/ml G TUBE SCH (07:50)
[2019-11-13] MEDS ORDERED: Polyethylene Glycol 3350 17 GM PACKET G TUBE PRN (12:57)
[2019-11-13] MEDS: Amantadine SOLN ORALSYR 10 mg/ml PO SCH (15:36)
[2019-11-13] MEDS: Insulin GLARGINE 100 un/ml 10 ml VIAL SUBCUT SCH (19:01)
[2019-11-13] MEDS: Docusate LIQ 100 MG/10 ML UDC G TUBE SCH (22:04)
[2019-11-13] MEDS: Magnesium Hydroxide LIQ 30 ML UDC PO PRN (22:04)
[2019-11-14] MEDS: Amantadine SOLN ORALSYR 10 mg/ml G TUBE SCH (10:09)
[2019-11-14] MEDS: Docusate LIQ 100 MG/10 ML UDC G TUBE SCH ×2 (10:10→20:23)
[2019-11-14] MEDS: Amantadine SOLN ORALSYR 10 mg/ml PO SCH (16:13)
[2019-11-14] MEDS: Magnesium Hydroxide LIQ 30 ML UDC PO PRN (17:57)
[2019-11-14] MEDS: Insulin GLARGINE 100 un/ml 10 ml VIAL SUBCUT SCH (21:45)
[2019-11-15] MEDS: Amantadine SOLN ORALSYR 10 mg/ml G TUBE SCH (08:15)
[2019-11-15] MEDS: Docusate LIQ 100 MG/10 ML UDC G TUBE SCH ×2 (08:15→21:24)
[2019-11-15] MEDS: Amantadine SOLN ORALSYR 10 mg/ml PO SCH (16:04)
[2019-11-15] MEDS ORDERED: Hemorrhoidal OINT 1 TUBE PR PRN (17:45)
[2019-11-15] MEDS: Insulin GLARGINE 100 un/ml 10 ml VIAL SUBCUT SCH (21:23)
[2019-11-16] MEDS: Amantadine SOLN ORALSYR 10 mg/ml G TUBE SCH (08:06)
[2019-11-16] MEDS: Docusate LIQ 100 MG/10 ML UDC G TUBE SCH ×2 (10:18→21:54)
[2019-11-16] MEDS: Polyethylene Glycol 3350 17 GM PACKET G TUBE SCH (10:18)
[2019-11-16] MEDS: Amantadine SOLN ORALSYR 10 mg/ml PO SCH (14:41)
[2019-11-16] MEDS: Insulin GLARGINE 100 un/ml 10 ml VIAL SUBCUT SCH (21:54)
[2019-11-17] MEDS: Enoxaparin 40 MG/0.4 ML SYR SUBCUT SCH (08:13)
[2019-11-17] MEDS: Amantadine SOLN ORALSYR 10 mg/ml G TUBE SCH (08:14)
[2019-11-17] MEDS: Docusate LIQ 100 MG/10 ML UDC G TUBE SCH ×2 (08:14→21:06)
[2019-11-17] MEDS: Polyethylene Glycol 3350 17 GM PACKET G TUBE SCH (08:14)
[2019-11-17] MEDS: Amantadine SOLN ORALSYR 10 mg/ml PO SCH (15:17)
[2019-11-17] MEDS: Insulin GLARGINE 100 un/ml 10 ml VIAL SUBCUT SCH (21:00)
[2019-11-17 22:40] LABS: Urine Appearance Cloudy; Urine Bilirubin Negative (Negative); Urine Blood 3+ (Negative); Urine Color Yellow; Urine Glucose Negative (Negative); Urine Ketones Negative (Negative); Urine Nitrite Positive (Negative); Urine Protein Negative (Negative); Urine Urobilinogen Negative (Negative)
[2019-11-17 22:43] LABS: Urine Bacteria 1+ (Absent); Urine Red Blood Cell 3+(>10/hpf) (Absent); Urine White Blood Cell 3+(>20/hpf) (Absent)
[2019-11-18 05:53] LABS: ABS Basophils 0.1 10^3/ul (0-0.2); ABS Eosinophils 0.1 10^3/ul (0-0.6); ABS Lymphocytes 1.7 10^3/ul (1.0-4.8); ABS Monocytes 0.6 10^3/ul (0-0.8); ABS Neutrophils 2.2 10^3/ul (1.5-7.7); Eosinophil % 3.2 %; Hematocrit 36 % (42-52); Lymphocyte % 37.3 %; Mean Corpuscular HGB Conc 34 g/dL (31-36); Mean Corpuscular Hemoglobin 33 pg (27-31); Mean Corpuscular Volume 99 fL (80-94); Mean Platelet Volume 10.3 fL (7.4-10.4); Nucleated Red Blood Cells % 0.1; Platelet Count 262 10^3/uL (150-450); Red Cell Distribution Width 16 % (10-15); White Blood Count 4.7 10^3/uL (3.5-10.8)
[2019-11-18 06:04] LABS: Albumin 3.2 g/dL (3.2-5.2); Albumin/Globulin Ratio 0.9 (1-3); BUN/Creatinine Ratio 15.2 (8-20); EGFR African American 119.1 (>60); EGFR Non-African American 98.4 (>60); Globulin 3.4 g/dL (2-4); Total Bilirubin 0.4 mg/dL (0.2-1.0); Total Protein 6.6 g/dL (6.4-8.9)
[2019-11-18] MEDS: Docusate LIQ 100 MG/10 ML UDC G TUBE SCH ×2 (10:35→20:27)
[2019-11-18] MEDS: Enoxaparin 40 MG/0.4 ML SYR SUBCUT SCH (10:35)
[2019-11-18] MEDS: Polyethylene Glycol 3350 17 GM PACKET G TUBE SCH (10:36)
[2019-11-18] MEDS: Amantadine SOLN ORALSYR 10 mg/ml G TUBE SCH (10:36)
[2019-11-18] MEDS: Amantadine SOLN ORALSYR 10 mg/ml PO SCH (15:40)
[2019-11-18 16:03] LABS: Urine Appearance Cloudy; Urine Bilirubin Negative (Negative); Urine Blood 1+ (Negative); Urine Color Amber; Urine Glucose Negative (Negative); Urine Ketones Negative (Negative); Urine Nitrite Negative (Negative); Urine Protein 2+(100 mg/dL) (Negative); Urine Specific Gravity 1.021 (1.010-1.030); Urine Urobilinogen Negative (Negative)
[2019-11-18 16:23] LABS: Urine Bacteria Absent (Absent); Urine Red Blood Cell 3+(>10/hpf) (Absent); Urine White Blood Cell 3+(>20/hpf) (Absent)
[2019-11-18] MEDS: Insulin GLARGINE 100 un/ml 10 ml VIAL SUBCUT SCH (20:21)
[2019-11-19] MEDS: Docusate LIQ 100 MG/10 ML UDC G TUBE SCH ×2 (09:43→20:48)
[2019-11-19] MEDS: Polyethylene Glycol 3350 17 GM PACKET G TUBE SCH (09:43)
[2019-11-19] MEDS: Enoxaparin 40 MG/0.4 ML SYR SUBCUT SCH (09:43)
[2019-11-19] MEDS: Amantadine SOLN ORALSYR 10 mg/ml G TUBE SCH (09:43)
[2019-11-19] MEDS: Amantadine SOLN ORALSYR 10 mg/ml PO SCH (16:12)
[2019-11-19] MEDS: Insulin GLARGINE 100 un/ml 10 ml VIAL SUBCUT SCH (20:47)
[2019-11-20] MEDS: Amantadine SOLN ORALSYR 10 mg/ml G TUBE SCH (09:10)
[2019-11-20] MEDS: Enoxaparin 40 MG/0.4 ML SYR SUBCUT SCH (09:11)
[2019-11-20] MEDS: Docusate LIQ 100 MG/10 ML UDC G TUBE SCH ×2 (09:11→21:24)
[2019-11-20] MEDS: Polyethylene Glycol 3350 17 GM PACKET G TUBE SCH (09:12)
[2019-11-20] MEDS ORDERED: Insulin GLARGINE 100 un/ml 10 ml VIAL SUBCUT SCH (11:00)
[2019-11-20] MEDS: Nitrofurantoin (monohydrate/macrocrystals) 100 mg CAP PEG TUBE SCH ×4 (11:07→23:30)
[2019-11-20] MEDS: Amantadine SOLN ORALSYR 10 mg/ml PO SCH (15:14)
[2019-11-20] MEDS: Insulin GLARGINE 100 un/ml 10 ml VIAL SUBCUT SCH (21:24)
[2019-11-21] MEDS: Nitrofurantoin (monohydrate/macrocrystals) 100 mg CAP PEG TUBE SCH ×4 (05:05→23:25)
[2019-11-21] MEDS: Docusate LIQ 100 MG/10 ML UDC G TUBE SCH ×2 (09:26→21:18)
[2019-11-21] MEDS: Amantadine SOLN ORALSYR 10 mg/ml G TUBE SCH (09:27)
[2019-11-21] MEDS: Enoxaparin 40 MG/0.4 ML SYR SUBCUT SCH (09:27)
[2019-11-21] MEDS: Polyethylene Glycol 3350 17 GM PACKET G TUBE SCH (09:27)
[2019-11-21] MEDS: Amantadine SOLN ORALSYR 10 mg/ml PO SCH (15:39)
[2019-11-21] MEDS: Insulin GLARGINE 100 un/ml 10 ml VIAL SUBCUT SCH (21:22)
[2019-11-22] MEDS: Nitrofurantoin (monohydrate/macrocrystals) 100 mg CAP PEG TUBE SCH ×2 (05:19→12:28)
[2019-11-22] MEDS: Enoxaparin 40 MG/0.4 ML SYR SUBCUT SCH (10:16)
[2019-11-22] MEDS: Polyethylene Glycol 3350 17 GM PACKET G TUBE SCH (10:16)
[2019-11-22] MEDS: Docusate LIQ 100 MG/10 ML UDC G TUBE SCH (10:19)
[2019-11-22] MEDS: Amantadine SOLN ORALSYR 10 mg/ml G TUBE SCH (10:20)
[2019-11-22] MEDS ORDERED: Nitrofurantoin (macrocrystals) 50 mg CAP PEG TUBE SCH (13:00)
[2019-11-22] MEDS: Nitrofurantoin (macrocrystals) 50 mg CAP PEG TUBE SCH (18:32)
[2019-11-23] MEDS: Nitrofurantoin (macrocrystals) 50 mg CAP PEG TUBE SCH ×4 (00:47→19:55)
[2019-11-23] MEDS: Amantadine SOLN ORALSYR 10 mg/ml G TUBE SCH (10:39)
[2019-11-23] MEDS: Polyethylene Glycol 3350 17 GM PACKET G TUBE SCH (10:39)
[2019-11-23] MEDS: Enoxaparin 40 MG/0.4 ML SYR SUBCUT SCH (10:39)
[2019-11-23] MEDS ORDERED: Nitrofurantoin (macrocrystals) 50 mg CAP PO ONE (18:23)
[2019-11-24] MEDS: Nitrofurantoin (macrocrystals) 50 mg CAP PO SCH ×4 (00:13→17:32)
[2019-11-24] MEDS ORDERED: GLIMEPIRIDE 2 MG PO SCH (09:00)
[2019-11-24] MEDS: Amantadine SOLN ORALSYR 10 mg/ml G TUBE SCH (09:18)
[2019-11-24] MEDS: Enoxaparin 40 MG/0.4 ML SYR SUBCUT SCH (09:18)
[2019-11-24] MEDS: Polyethylene Glycol 3350 17 GM PACKET G TUBE SCH (09:19)
[2019-11-24] MEDS: Al Hydrox/Mg Hydrox/Simet LIQ 30 ML UDC PO PRN (22:34)
[2019-11-25 05:21] LABS: ABS Basophils 0.1 10^3/ul (0-0.2); ABS Eosinophils 0.1 10^3/ul (0-0.6); ABS Lymphocytes 1.8 10^3/ul (1.0-4.8); ABS Monocytes 0.7 10^3/ul (0-0.8); ABS Neutrophils 2.7 10^3/ul (1.5-7.7); Eosinophil % 2.4 %; Hematocrit 36 % (42-52); Hemoglobin 12.2 g/dL (14.0-18.0); Lymphocyte % 33.2 %; Mean Corpuscular HGB Conc 34 g/dL (31-36); Mean Corpuscular Hemoglobin 33 pg (27-31); Mean Corpuscular Volume 99 fL (80-94); Mean Platelet Volume 10.3 fL (7.4-10.4); Platelet Count 236 10^3/uL (150-450); Red Blood Count 3.66 10^6 /uL (4.18-5.48); Red Cell Distribution Width 16 % (10-15); White Blood Count 5.4 10^3/uL (3.5-10.8)
[2019-11-25 05:23] LABS: Albumin 3.3 g/dL (3.2-5.2); BUN/Creatinine Ratio 9.6 (8-20); Calcium 9.3 mg/dL (8.6-10.3); EGFR African American 130.5 (>60); EGFR Non-African American 107.8 (>60); Globulin 3.3 g/dL (2-4); Potassium 4.2 mmol/L (3.5-5.0); Total Bilirubin 0.4 mg/dL (0.2-1.0); Total Protein 6.6 g/dL (6.4-8.9)
[2019-11-25] MEDS: Enoxaparin 40 MG/0.4 ML SYR SUBCUT SCH (09:11)
[2019-11-25] MEDS: Polyethylene Glycol 3350 17 GM PACKET G TUBE SCH (09:11)
[2019-11-25] MEDS: CMCS: Glimepiride 2 mg TAB (NF) PO SCH (09:12)
[2019-11-25] MEDS: Amantadine SOLN ORALSYR 10 mg/ml G TUBE SCH (09:21)
[2019-11-25] MEDS: PTO: Empagliflozin (NF) 25 MG TABLET PO SCH (09:21)
[2019-11-26] MEDS: Amantadine SOLN ORALSYR 10 mg/ml G TUBE SCH (08:27)
[2019-11-26] MEDS: PTO: Empagliflozin (NF) 25 MG TABLET PO SCH (08:38)
[2019-11-26] MEDS: Enoxaparin 40 MG/0.4 ML SYR SUBCUT SCH (08:38)
[2019-11-26] MEDS: CMCS: Glimepiride 2 mg TAB (NF) PO SCH (08:39)
[2019-11-26] MEDS: Polyethylene Glycol 3350 17 GM PACKET G TUBE SCH (08:40)
[2019-11-27] MEDS: CMCS: Glimepiride 2 mg TAB (NF) PO SCH (09:10)
[2019-11-27] MEDS: Amantadine SOLN ORALSYR 10 mg/ml G TUBE SCH (09:10)
[2019-11-27] MEDS: PTO: Empagliflozin (NF) 25 MG TABLET PO SCH (09:12)
[2019-11-27] MEDS: Enoxaparin 40 MG/0.4 ML SYR SUBCUT SCH (09:12)
[2019-11-27] MEDS: Polyethylene Glycol 3350 17 GM PACKET G TUBE SCH (09:13)
[2019-11-27] MEDS: Al Hydrox/Mg Hydrox/Simet LIQ 30 ML UDC PO PRN (23:40)
[2019-11-28] MEDS: Enoxaparin 40 MG/0.4 ML SYR SUBCUT SCH (09:50)
[2019-11-28] MEDS: CMCS: Glimepiride 2 mg TAB (NF) PO SCH (09:50)
[2019-11-28] MEDS: PTO: Empagliflozin (NF) 25 MG TABLET PO SCH (09:50)
[2019-11-28] MEDS: Polyethylene Glycol 3350 17 GM PACKET G TUBE SCH (09:51)
[2019-11-29] MEDS: PTO: Empagliflozin (NF) 25 MG TABLET PO SCH (09:01)
[2019-11-29] MEDS: Enoxaparin 40 MG/0.4 ML SYR SUBCUT SCH (09:01)
[2019-11-29] MEDS: CMCS: Glimepiride 2 mg TAB (NF) PO SCH (09:02)
[2019-11-29] MEDS: Polyethylene Glycol 3350 17 GM PACKET G TUBE SCH (09:02)
[2019-11-30] MEDS: Enoxaparin 40 MG/0.4 ML SYR SUBCUT SCH (10:46)
[2019-11-30] MEDS: PTO: Empagliflozin (NF) 25 MG TABLET PO SCH (10:47)
[2019-11-30] MEDS: CMCS: Glimepiride 2 mg TAB (NF) PO SCH (10:48)
[2019-11-30] MEDS: Polyethylene Glycol 3350 17 GM PACKET G TUBE SCH (10:55)
[2019-12-01] MEDS: Enoxaparin 40 MG/0.4 ML SYR SUBCUT SCH (08:22)
[2019-12-01] MEDS: Polyethylene Glycol 3350 17 GM PACKET G TUBE SCH (08:23)
[2019-12-01] MEDS: CMCS: Glimepiride 2 mg TAB (NF) PO SCH (08:23)
[2019-12-01] MEDS: PTO: Empagliflozin (NF) 25 MG TABLET PO SCH (08:28)
[2019-12-02 06:05] LABS: ABS Eosinophils 0.1 10^3/ul (0-0.6); ABS Lymphocytes 1.4 10^3/ul (1.0-4.8); ABS Monocytes 0.5 10^3/ul (0-0.8); ABS Neutrophils 1.9 10^3/ul (1.5-7.7); Eosinophil % 3.3 %; Hematocrit 35 % (42-52); Hemoglobin 11.9 g/dL (14.0-18.0); Lymphocyte % 34.7 %; Mean Corpuscular HGB Conc 34 g/dL (31-36); Mean Corpuscular Hemoglobin 33 pg (27-31); Mean Corpuscular Volume 98 fL (80-94); Mean Platelet Volume 9.7 fL (7.4-10.4); Nucleated Red Blood Cells % 0.1; Platelet Count 204 10^3/uL (150-450); Red Blood Count 3.59 10^6 /uL (4.18-5.48); Red Cell Distribution Width 16 % (10-15); White Blood Count 3.9 10^3/uL (3.5-10.8)
[2019-12-02 06:24] LABS: Albumin 3.5 g/dL (3.2-5.2); Albumin/Globulin Ratio 1.4 (1-3); BUN/Creatinine Ratio 20.3 (8-20); EGFR African American 119.1 (>60); EGFR Non-African American 98.4 (>60); Globulin 2.5 g/dL (2-4); Potassium 3.6 mmol/L (3.5-5.0); Total Bilirubin 0.3 mg/dL (0.2-1.0)
[2019-12-02] MEDS: PTO: Empagliflozin (NF) 25 MG TABLET PO SCH (08:11)
[2019-12-02] MEDS: Enoxaparin 40 MG/0.4 ML SYR SUBCUT SCH (08:11)
[2019-12-02] MEDS: Polyethylene Glycol 3350 17 GM PACKET G TUBE SCH (08:12)
[2019-12-03] MEDS: Enoxaparin 40 MG/0.4 ML SYR SUBCUT SCH (08:21)
[2019-12-03] MEDS: Polyethylene Glycol 3350 17 GM PACKET G TUBE SCH (08:21)
[2019-12-03] MEDS: PTO: Empagliflozin (NF) 25 MG TABLET PO SCH (08:22)
[2019-12-04] MEDS: PTO: Empagliflozin (NF) 25 MG TABLET PO SCH (11:39)
[2019-12-04] MEDS: Enoxaparin 40 MG/0.4 ML SYR SUBCUT SCH (11:40)
[2019-12-04] MEDS: Polyethylene Glycol 3350 17 GM PACKET G TUBE SCH (11:41)
[2019-12-05] MEDS: PTO: Empagliflozin (NF) 25 MG TABLET PO SCH (08:25)
[2019-12-05] MEDS: Enoxaparin 40 MG/0.4 ML SYR SUBCUT SCH (08:25)
[2019-12-05] MEDS: Polyethylene Glycol 3350 17 GM PACKET G TUBE SCH (08:27)
[2019-12-06] MEDS: Enoxaparin 40 MG/0.4 ML SYR SUBCUT SCH (08:31)
[2019-12-06] MEDS: Polyethylene Glycol 3350 17 GM PACKET G TUBE SCH (08:32)
[2019-12-06] MEDS: PTO: Empagliflozin (NF) 25 MG TABLET PO SCH (08:35)
[2019-12-07] MEDS: PTO: Empagliflozin (NF) 25 MG TABLET PO SCH (08:26)
[2019-12-07] MEDS: Polyethylene Glycol 3350 17 GM PACKET G TUBE SCH (08:26)
[2019-12-07] MEDS: Enoxaparin 40 MG/0.4 ML SYR SUBCUT SCH (08:26)
[2019-12-08] MEDS: PTO: Empagliflozin (NF) 25 MG TABLET PO SCH (08:28)
[2019-12-08] MEDS: Enoxaparin 40 MG/0.4 ML SYR SUBCUT SCH (08:28)
[2019-12-08] MEDS: Polyethylene Glycol 3350 17 GM PACKET G TUBE SCH (08:29)
[2019-12-09 04:42] LABS: ABS Eosinophils 0.1 10^3/ul (0-0.6); ABS Lymphocytes 1.8 10^3/ul (1.0-4.8); ABS Monocytes 0.7 10^3/ul (0-0.8); ABS Neutrophils 2.3 10^3/ul (1.5-7.7); Eosinophil % 2.6 %; Hematocrit 37 % (42-52); Hemoglobin 12.5 g/dL (14.0-18.0); Lymphocyte % 36.7 %; Mean Corpuscular HGB Conc 34 g/dL (31-36); Mean Corpuscular Hemoglobin 33 pg (27-31); Mean Corpuscular Volume 98 fL (80-94); Mean Platelet Volume 9.1 fL (7.4-10.4); Nucleated Red Blood Cells % 0.1; Platelet Count 200 10^3/uL (150-450); Red Blood Count 3.73 10^6 /uL (4.18-5.48); Red Cell Distribution Width 16 % (10-15)
[2019-12-09 04:57] LABS: Albumin 3.5 g/dL (3.2-5.2); Albumin/Globulin Ratio 1.4 (1-3); BUN/Creatinine Ratio 24.2 (8-20); Calcium 9.1 mg/dL (8.6-10.3); EGFR African American 101.2 (>60); EGFR Non-African American 83.6 (>60); Globulin 2.5 g/dL (2-4); Total Bilirubin 0.3 mg/dL (0.2-1.0)
[2019-12-09] MEDS: PTO: Empagliflozin (NF) 25 MG TABLET PO SCH (08:33)
[2019-12-09] MEDS: Enoxaparin 40 MG/0.4 ML SYR SUBCUT SCH (08:33)
[2019-12-09] MEDS: Polyethylene Glycol 3350 17 GM PACKET G TUBE SCH (08:33)
[2019-12-10] MEDS: Polyethylene Glycol 3350 17 GM PACKET G TUBE SCH (08:56)
[2019-12-10] MEDS: Enoxaparin 40 MG/0.4 ML SYR SUBCUT SCH (08:56)
[2019-12-10] MEDS: PTO: Empagliflozin (NF) 25 MG TABLET PO SCH (08:56)
[2019-12-11] MEDS: PTO: Empagliflozin (NF) 25 MG TABLET PO SCH (08:37)
[2019-12-11] MEDS: Enoxaparin 40 MG/0.4 ML SYR SUBCUT SCH (08:37)
[2019-12-11] MEDS: Polyethylene Glycol 3350 17 GM PACKET G TUBE SCH (08:37)
[2019-12-12] MEDS: Polyethylene Glycol 3350 17 GM PACKET G TUBE SCH (07:46)
[2019-12-12] MEDS: PTO: Empagliflozin (NF) 25 MG TABLET PO SCH (07:47)
[2019-12-12] MEDS: Enoxaparin 40 MG/0.4 ML SYR SUBCUT SCH (09:12)
[2019-12-13] MEDS: PTO: Empagliflozin (NF) 25 MG TABLET PO SCH (09:20)
[2019-12-13] MEDS: Polyethylene Glycol 3350 17 GM PACKET G TUBE SCH (09:21)
[2019-12-13] MEDS: Enoxaparin 40 MG/0.4 ML SYR SUBCUT SCH (09:21)
[2019-12-14 05:46] VITALS: BP 125/71
[2019-12-14] MEDS: Enoxaparin 40 MG/0.4 ML SYR SUBCUT SCH (08:42)
[2019-12-14] MEDS: PTO: Empagliflozin (NF) 25 MG TABLET PO SCH (08:43)
[2019-12-14] MEDS: Polyethylene Glycol 3350 17 GM PACKET G TUBE SCH (08:44)
== END 2019-12-14 13:21 | DRG 860 ==
LOC: PMRU 12:40
PROVIDERS: ADMIT Physical Medicine & Rehabilitation; ATTEND Physical Medicine & Rehabilitation

== ENCOUNTER 2020-05-18 09:13 | Inpatient (IN) ==
[2020-05-18 09:47] LABS: ABS Basophils 0.1 10^3/ul (0-0.2); ABS Eosinophils 0.1 10^3/ul (0-0.6); ABS Lymphocytes 1.3 10^3/ul (1.0-4.8); ABS Monocytes 0.7 10^3/ul (0-0.8); ABS Neutrophils 3.8 10^3/ul (1.5-7.7); Eosinophil % 1.6 %; Hematocrit 41 % (42-52); Hemoglobin 14.3 g/dL (14.0-18.0); Lymphocyte % 21.1 %; Mean Corpuscular HGB Conc 35 g/dL (31-36); Mean Corpuscular Hemoglobin 34 pg (27-31); Mean Corpuscular Volume 97 fL (80-94); Mean Platelet Volume 10.7 fL (7.4-10.4); Platelet Count 172 10^3/uL (150-450); Red Blood Count 4.24 10^6 /uL (4.18-5.48); Red Cell Distribution Width 18 % (10-15); White Blood Count 5.9 10^3/uL (3.5-10.8)
[2020-05-18 09:58] LABS: ALT 24 U/L (7-52); AST 18 U/L (13-39); Albumin 4.2 g/dL (3.2-5.2); Albumin/Globulin Ratio 1.8 (1-3); Alkaline Phosphatase 78 U/L (34-104); Anion Gap 8 mmol/L (2-11); BUN/Creatinine Ratio 23.9 (8-20); Blood Urea Nitrogen 22 mg/dL (6-24); CO2 Carbon Dioxide 28 mmol/L (22-32); Calcium 9.4 mg/dL (8.6-10.3); Chloride 102 mmol/L (101-111); EGFR African American 99.6 (>60); EGFR Non-African American 82.3 (>60); Globulin 2.4 g/dL (2-4); Glucose 214 mg/dL (70-100); Magnesium 1.6 mg/dL (1.9-2.7); Potassium 3.9 mmol/L (3.5-5.0); Sodium 138 mmol/L (135-145); Total Protein 6.6 g/dL (6.4-8.9)
[2020-05-18] MEDS ORDERED: Magnesium Sulfate 2 gm BAG 2 GM/50 ML BAG IVPB ONE (10:11)
[2020-05-18 10:19] LABS: TSH Ultra Thyroid Stim Horm 8.43 mcIU/mL (0.34-5.60)
[2020-05-18 11:07] LABS: Free T4 1.01 ng/dL (0.61-1.12)
[2020-05-18 11:11] LABS: Total T3 80 ng/dL (87-178)
[2020-05-18] MEDS ORDERED: Dextrose 50% Syringe 50 ml 25 GM/50 ML SYRINGE IV PUSH PRN (11:43)
[2020-05-18 12:30] LABS: Vitamin B12 > 1450 pg/mL (180-914)
[2020-05-18 17:30] LABS: Thyroid Peroxidase Antibodies < 0.25 IU/mL (<9)
[2020-05-18 20:25] LABS: Urine Appearance Clear; Urine Bilirubin Negative (Negative); Urine Blood Negative (Negative); Urine Color Yellow; Urine Glucose 2+(150 mg/dL) (Negative); Urine Ketones Negative (Negative); Urine Nitrite Negative (Negative); Urine Protein 2+(100 mg/dL) (Negative); Urine Specific Gravity 1.013 (1.010-1.030); Urine Urobilinogen Negative (Negative)
[2020-05-18 20:28] LABS: Urine Bacteria Absent (Absent); Urine Red Blood Cell Trace(0-2/hpf) (Absent); Urine White Blood Cell Absent (Absent)
[2020-05-18] MEDS ORDERED: Labetalol IV 5 MG/ML 20 ml VIAL IV PUSH ONE (23:33)
[2020-05-19 05:30] LABS: ABS Basophils 0.1 10^3/ul (0-0.2); ABS Eosinophils 0.1 10^3/ul (0-0.6); ABS Lymphocytes 1.5 10^3/ul (1.0-4.8); ABS Monocytes 0.7 10^3/ul (0-0.8); ABS Neutrophils 4.4 10^3/ul (1.5-7.7); Eosinophil % 1.6 %; Hematocrit 41 % (42-52); Hemoglobin 14.2 g/dL (14.0-18.0); Lymphocyte % 21.4 %; Mean Corpuscular HGB Conc 35 g/dL (31-36); Mean Corpuscular Hemoglobin 34 pg (27-31); Mean Corpuscular Volume 97 fL (80-94); Mean Platelet Volume 10.3 fL (7.4-10.4); Nucleated Red Blood Cells % 0.1; Platelet Count 169 10^3/uL (150-450); Red Blood Count 4.21 10^6 /uL (4.18-5.48); Red Cell Distribution Width 18 % (10-15); White Blood Count 6.8 10^3/uL (3.5-10.8)
[2020-05-19 05:54] LABS: EGFR African American 109.1 (>60); EGFR Non-African American 90.2 (>60); Potassium 3.4 mmol/L (3.5-5.0)
[2020-05-19] MEDS: KCL 20 MEQ/100 ML IVPREMIX 20 MEQ/100 ML BAG IV SCH ×3 (10:19→14:28)
[2020-05-19 10:31] LABS: Magnesium 1.8 mg/dL (1.9-2.7)
[2020-05-19] MEDS ORDERED: Magnesium Sulfate 2 gm BAG 2 GM/50 ML BAG IVPB ONE (11:15)
[2020-05-19] MEDS: Erythromycin OPTH OINT APPLIC OINT LEFT EYE SCH (22:50)
[2020-05-20 05:26] LABS: BUN/Creatinine Ratio 19.4 (8-20); Calcium 9.1 mg/dL (8.6-10.3); EGFR African American 92.6 (>60); EGFR Non-African American 76.5 (>60); Potassium 3.7 mmol/L (3.5-5.0)
[2020-05-20] MEDS: Erythromycin OPTH OINT APPLIC OINT LEFT EYE SCH ×3 (09:08→19:58)
[2020-05-20] MEDS: NS 0.9% 1000 ml BAG 1,000 ML IV SCH ×2 (11:06→22:11)
[2020-05-21 08:22] LABS: Urine Appearance Cloudy; Urine Bilirubin Negative (Negative); Urine Blood 3+ (Negative); Urine Color Yellow; Urine Glucose 1+(50 mg/dL) (Negative); Urine Ketones Trace (Negative); Urine Nitrite Negative (Negative); Urine Protein 2+(100 mg/dL) (Negative); Urine Specific Gravity 1.024 (1.010-1.030); Urine Urobilinogen Negative (Negative)
[2020-05-21 08:33] LABS: Urine Bacteria Absent (Absent); Urine Red Blood Cell 3+(>10/hpf) (Absent); Urine Squamous Epithelial Cell Present (Absent); Urine White Blood Cell Absent (Absent)
[2020-05-21] MEDS: Erythromycin OPTH OINT APPLIC OINT LEFT EYE SCH ×3 (08:39→19:48)
[2020-05-21] MEDS: NS 0.9% 1000 ml BAG 1,000 ML IV SCH (10:22)
[2020-05-21 11:30] LABS: Hematocrit 44 % (42-52); Hemoglobin 14.8 g/dL (14.0-18.0); Mean Corpuscular HGB Conc 34 g/dL (31-36); Mean Corpuscular Hemoglobin 34 pg (27-31); Mean Corpuscular Volume 100 fL (80-94); Mean Platelet Volume 10.6 fL (7.4-10.4); Platelet Count 190 10^3/uL (150-450); Red Cell Distribution Width 18 % (10-15); White Blood Count 5.6 10^3/uL (3.5-10.8)
[2020-05-21 11:51] LABS: Activated Partial Thrombo Time 26.1 seconds (26.0-38.0); INR 1.1 (0.82-1.09)
[2020-05-21 13:59] LABS: Body Fluid Source Cerebral Spinal
[2020-05-21 15:12] LABS: CSF Glucose 96 mg/dL (40-70)
[2020-05-21] MEDS ORDERED: Dextrose 50% Syringe 50 ml 25 GM/50 ML SYRINGE IV PUSH PRN (16:55)
[2020-05-22] MEDS: Erythromycin OPTH OINT APPLIC OINT LEFT EYE SCH ×3 (08:47→20:18)
[2020-05-22 13:06] LABS: Urine Appearance Clear; Urine Bilirubin Negative (Negative); Urine Blood 2+ (Negative); Urine Color Yellow; Urine Glucose 3+(>=500 mg/dL) (Negative); Urine Ketones Negative (Negative); Urine Nitrite Negative (Negative); Urine Protein 1+(30 mg/dL) (Negative); Urine Urobilinogen Negative (Negative)
[2020-05-22 13:23] LABS: Urine Bacteria Absent (Absent); Urine Red Blood Cell 2+(6-10/hpf) (Absent); Urine White Blood Cell 1+(6-10/hpf) (Absent)
[2020-05-23] MEDS: Erythromycin OPTH OINT APPLIC OINT LEFT EYE SCH ×2 (08:32→13:54)
[2020-05-23 12:02] VITALS: BP 114/71
== END 2020-05-23 14:30 | DRG 57 ==
LOC: ED 09:13 → MEDTELE 15:37
PROVIDERS: ADMIT Internal Medicine; ATTEND Pediatrics